=== PATIENT | female | born 1970 | race Caucasian/White ===

== ENCOUNTER 2021-09-10 15:00 | Emergency (ER) | payer BC, SELFPAY ==
[2021-09-10] VITALS (7 sets, daily range): BP systolic 137–186; BP diastolic 73–94; PULSE 82–89; RESP 19–20; TEMP 36.6–36.8; O2SAT 96–99; BMI 34.2
--- NOTE | ~2021-09-10 | CT_ITS ---
EXAMINATION: CT HEAD WITHOUT CONTRAST CLINICAL INFORMATION: Hypertension, headache COMPARISON: MR brain 01/07/2017, CT head 01/07/2017 TECHNIQUE: Contiguous axial imaging was performed from the skull base to vertex without intravenous administration of contrast. Additional 2-D coronal and sagittal reformatted images are generated on the CT workstation and uploaded to PACS. This CT examination was performed using dose optimization techniques as appropriate, variously including the following: *Automated exposure control *Adjustment of mA and/or kV according to patient size (this includes techniques or standardized protocols for targeted exams where dose is matched to indication/reason for exam; i.e. extremities or head) *Use of iterative reconstruction technique DLP: 629 mGy-cm FINDINGS: There is no intracranial hemorrhage, hematoma, or extra-axial fluid collection. The ventricles are normal in size. There is no hydrocephalus, edema, or mass effect. The hernandez-white matter differentiation appears well preserved . There is no visible acute territorial infarct or mass lesion. The calvarium appears intact. There is no pneumocephalus or orbital emphysema. The visualized sinuses and middle ears and mastoid air cells show no significant mucosal thickening. There are no air-fluid levels. CT/CT head/brain wo con IMPRESSION: No acute intracranial abnormality.
[2021-09-10] MEDS: Labetalol HCL 100 MG TABLET PO (15:16)
--- NOTE | 2021-09-10 15:20 | ECG_ITS ---
Test Reason : HEADACHE Blood Pressure : / mmHG Vent. Rate : 086 BPM Atrial Rate : 086 BPM P-R Int : 174 ms QRS Dur : 086 ms QT Int : 386 ms P-R-T Axes : 049 000 002 degrees QTc Int : 461 ms Normal sinus rhythm Septal infarct , age undetermined Abnormal ECG When compared to the previous EKG of No significant changes seen Referred By: Leticia Khan Electronically Signed By:Liam Umaña
--- NOTE | 2021-09-10 15:22 | ED.HA ---
HPI - Headache General Chief Complaint: Headache Stated Complaint: PIZARRO/DIZZY X'S HALF HOUR,+STROKE SCALE PER EMS Time Seen by Provider: 09/10/21 15:04 Source: patient and EMS Mode of arrival: EMS Limitations: no limitations History of Present Illness HPI Narrative: Patient comes emergency room complaining of a headache. Patient states that approximately 1-1/2 hours ago patient was watching TV, started noticing bright rainbow like smearing colors in her vision on the left eye, patient had no pain, no headache. Shortly after, patient started complaining of a headache in the posterior aspect of her head. Patient states that she called the ambulance due to her family's insistence. Patient was able to walk, open the door for EMS and get on the stretcher. Patient states that now she has the headaches it is 6/10, no visual changes, nausea vomiting. It was noted that patient's blood pressure is elevated, patient states she forgot to take her blood pressure medications this morning. Related Data Allergies Allergy/AdvReac Type Severity Reaction Status Date / Time No Known Allergies Allergy Unverified 06/01/20 17:46 [No Known Allergies*] Review of Systems Review of Systems: Constitutional : No Weight loss, No Fever, No Chills, No Night Sweats, No Fatigue, No Malaise ENT/Mouth : No Hearing loss, No Ear Pain, No Nasal Congestion, No Sinus Pain, No Hoarseness, No sore throat, No Rhinorrhea, No Swallowing Difficulty Eyes: No Eye Pain, No Swelling, No Redness, No Foreign Body, No Discharge, No Vision Changes Cardiovascular : No Chest Pain, No SOB, No Dyspnea on Exertion, No Orthopnea, No Edema, No Palpitations Respiratory : No Cough, No Sputum, No Wheezing, No Smoke Exposure, No Dyspnea Gastrointestinal : No Nausea, No Vomiting, No Diarrhea, No Constipation, No abdominal Pain, No Hematochezia, No Melena Genitourinary : no irregular bleeding, No Dysuria, No Urinary Frequency, No Hematuria, No Urinary Incontinence, No Urgency, No Flank Pain, No Urinary Flow Changes, No Hesitancy Musculoskeletal : No joint pain, No Myalgias, No Joint Swelling Skin : No Skin Lesions, No rash Neuro : No Weakness, No Numbness, No Paresthesias, No Loss of Consciousness, complaining of being removal like collar on the left side of her eye, feeling a bit dizzy but improving, complaining of headache Psych : No Anxiety/Panic, No Depression, No SI/HI/AH/VH, No Social Issues, Heme/Lymph: No Bruising, No Bleeding,No Lymphadenopathy Endocrine : No Polyuria, No Polydipsia, No Temperature Intolerance REPLACED BY [facility] Past Medical History Medical History Diabetes High cholesterol HTN (hypertension) Social History Social History Advance Directives: No Advance Directives Information Provided: Yes Patient : No Physical Exam Vital Signs: Vital Signs: Last Vital Signs Temp 98.3 F 09/10/21 16:24 Pulse 82 09/10/21 17:50 Resp 20 09/10/21 16:24 BP 137/73 09/10/21 17:50 Pulse Ox 98 09/10/21 17:50 BMI result Body Mass Index 34.2 Const: Other: Appearance: Alert. Oriented X3. No acute distress. Eyes: Pupils equal, round and reactive to light. ENT: Pharynx normal. Neck: Normal inspection. Neck supple. No lymph nodes noted. No crepitus CVS: Normal heart rate and rhythm. Pulses normal. Normal S1 and S2 Respiratory: No respiratory distress. Breath sounds normal. No Wheezing. No rales Abdomen: Soft and nontender. No rigidity. No distention. good BS x4 Skin: Skin warm and dry. Normal skin color. Normal skin turgor. Extremities: No lower extremity edema. No Lacerations. No Rash Neuro: Oriented X 3. No motor deficit. No sensory deficit. Moving all extermities. No slurred speech. Steady gait, ambulating normally without assistance, good truncal stability Course Course Course Narrative: I discussed the labs and CT scan with the patient, no acute findings. Patient received p.o. dose of meclizine, IV fluids, Zofran, Reglan and 1 dose of IV Toradol. Patient states that her headache completely resolved, no longer dizzy. Due to patient's high blood pressure she received 1 dose of p.o. labetalol, currently 132 systolic. As mentioned above, patient states she feels very well, asymptomatic, ready for discharge MDM - Headache Lab Data Result diagrams: 09/10/21 16:20 09/10/21 16:20 Labs: Lab Results 09/10/21 09/10/21 Range/Units 16:20 16:20 WBC 5.6 (4.8-10.8) X10*3/uL RBC 4.23 (4.20-5.50) X10*6/uL Hgb 12.0 (12.0-16.0) g/dl Hct 36.1 L (37.0-47.0) % MCV 85.3 (80.0-98.0) fL MCH 28.4 (27.0-33.0) pg MCHC 33.2 (31.0-35.0) g/dl RDW 12.7 (11.0-16.0) % Plt Count 259 (160-400) X10*3/uL MPV 8.7 L (9.4-12.3) fL Immature Gran % (Auto) 0.2 (0.0-0.4) % Neut % (Auto) 40.6 L (45-73) % Lymph % (Auto) 47.9 H (20-40) % [place] % (Auto) 8.4 (2-11) % Eos % (Auto) 2.5 (0-4) % Baso % (Auto) 0.4 (0-2) % Lymph # (Auto) 2.7 (1.2-4.9) X10*3/uL [place] # (Auto) 0.5 (0.1-1.2) X10*3/uL Eos # (Auto) 0.1 (0.0-0.4) X10*3/uL Baso # (Auto) 0.0 (0.0-0.2) X10*3/uL Abs Immat Gran (auto) 0.01 (0.00-0.03) X10*3/uL Absolute Neuts (auto) 2.3 (2.0-8.3) x10*3/uL Absolute Nucleated RBC 0.000 (0.0-0.012) X10*3/uL Nucleated RBC % (auto) 0.0 (0.0-0.2) /100WBC Sodium 140 (135-145) mmol/L Potassium 4.1 (3.3-5.1) mmol/L Chloride 108 (96-108) mmol/L Carbon Dioxide 26 (22-29) mmol/L Anion Gap 10 L (12-20) BUN 9 (9-16) mg/dL Creatinine 0.71 (0.5-1.4) mg/dL Estim Creat Clear Calc 85.3 Estimated GFR > 60 Random Glucose 267 H (60-115) mg/dL Calcium 9.1 (8.4-10.2) mg/dL Total Bilirubin 0.2 (0.0-1.0) mg/dL Direct Bilirubin < 0.2 (0.0-0.5) mg/dL AST 17 (5-31) U/L ALT 23 (0-31) U/L Alkaline Phosphatase 55 (39-117) U/L Total Protein 5.7 L (6.5-8.0) g/dL Albumin 3.6 (3.5-5.0) g/dL Imaging Data CT scan - head: Radiologist's impression: FINDINGS: There is no intracranial hemorrhage, hematoma, or extra-axial fluid collection.? The ventricles are normal in size. There is no hydrocephalus, edema, or mass effect.? The hernandez-white matter differentiation appears well preserved . There is no visible acute territorial infarct or mass lesion. The calvarium appears intact. There is no pneumocephalus or orbital emphysema.? The visualized sinuses and middle ears and mastoid air cells show no significant mucosal thickening. There are no air-fluid levels. CT/CT head/brain wo con IMPRESSION: No acute intracranial abnormality. Discharge Plan Discharge Clinical Impression: Migraine, Hypertension Patient Disposition: Home, Self-Care Instructions: Migraine Headache (ED) Additional Instructions: Please follow-up with your primary care physician tomorrow. If you have any worsening or new symptoms, please return to the emergency room or call 911
[2021-09-10] MEDS: Meclizine HCl 25 MG TABLET 50 MG PO (15:50)
[2021-09-10 16:35] LABS: MANUAL DIFF FLAG NO
[2021-09-10 16:36] LABS: Basophils Percent Auto 0.4 % (0-2); Eosinophils Absolute Auto 0.1 X10*3/uL (0.0-0.4); Eosinophils Percent Auto 2.5 % (0-4); Hematocrit 36.1 % (37.0-47.0); Imm Gran Abs Auto 0.01 X10*3/uL (0.00-0.03); Imm Gran Pct Auto 0.2 % (0.0-0.4); Lymphocytes Absolute Auto 2.7 X10*3/uL (1.2-4.9); Lymphocytes Percent Auto 47.9 % (20-40); Mean Corpuscular HGB Conc 33.2 g/dl (31.0-35.0); Mean Corpuscular Hemoglobin 28.4 pg (27.0-33.0); Mean Corpuscular Volume 85.3 fL (80.0-98.0); Mean Platelet Volume 8.7 fL (9.4-12.3); Monocytes Absolute Auto 0.5 X10*3/uL (0.1-1.2); Monocytes Percent Auto 8.4 % (2-11); Neutrophils Absolute Auto 2.3 x10*3/uL (2.0-8.3); Neutrophils Percent Auto 40.6 % (45-73); Platelet Count 259 X10*3/uL (160-400); Red Blood Count 4.23 X10*6/uL (4.20-5.50); Red Cell Distribution Width 12.7 % (11.0-16.0); White Blood Count 5.6 X10*3/uL (4.8-10.8)
[2021-09-10 16:56] LABS: Alanine Aminotransferase 23 U/L (0-31); Albumin Level 3.6 g/dL (3.5-5.0); Alkaline Phosphatase 55 U/L (39-117); Anion Gap 10 (12-20); Aspartate Amino Transferase 17 U/L (5-31); Bilirubin Direct < 0.2 mg/dL (0.0-0.5); Bilirubin Total 0.2 mg/dL (0.0-1.0); Blood Urea Nitrogen 9 mg/dL (9-16); Calcium 9.1 mg/dL (8.4-10.2); Carbon Dioxide 26 mmol/L (22-29); Chloride 108 mmol/L (96-108); Creatinine Clr Calc Pharmacy 85.3; Estimated Glomerular Filt Rate > 60; Glucose Random 267 mg/dL (60-115); Potassium 4.1 mmol/L (3.3-5.1); Sodium 140 mmol/L (135-145); Total Protein 5.7 g/dL (6.5-8.0)
[2021-09-10] MEDS: Ketorolac Tromethamine 30 MG/ML VIAL IVPUSH (17:45)
[2021-09-10] MEDS: diphenhydrAMINE HCL 50 MG/ML VIAL 25 MG IVPUSH (17:46)
[2021-09-10] MEDS: Metoclopramide HCl 10 MG/2 ML VIAL IVPUSH (17:46)
[2021-09-10] MEDS: 0.9 % Sodium Chloride 1,000 ML 999 ML IVCONT (17:48)
== END 2021-09-10 19:38 | disposition home or self-care (01) ==
PROVIDERS: Emergency Provider Emergency Medicine; PCP Pediatrics
DX: G43.009 Migraine without aura, not intractable, without status migrainosus (principal); I10 Essential (primary) hypertension; E11.9 Type 2 diabetes mellitus without complications
CPT/HCPCS: 36415; 70450; 80048; 80076; 85025; 93005; 96361; 96374; 96375; 99284; J1200; J1885; J2765

== ENCOUNTER 2022-04-19 09:04 | Emergency (ER) | payer OTHER, SELFPAY ==
--- NOTE | ~2022-04-19 | CT_ITS ---
EXAMINATION: CT ABDOMEN AND PELVIS WITHOUT CONTRAST CLINICAL INFORMATION: Left lower quadrant pain COMPARISON: None TECHNIQUE: Multidetector volumetric imaging was performed from the superior aspect of the liver through the pubic symphysis. Sagittal and coronal reformatted images were obtained on the technologist's workstation. This CT examination was performed using dose optimization techniques as appropriate, variously including the following: *Automated exposure control *Adjustment of mA and/or kV according to patient size (this includes techniques or standardized protocols for targeted exams where dose is matched to indication/reason for exam; i.e. extremities or head) *Use of iterative reconstruction technique DLP: 619 mGy-cm FINDINGS: LUNG BASES: The visualized lung bases are unremarkable. LIVER, GALLBLADDER, AND BILIARY TREE: The liver is prominent and demonstrates moderate steatosis. There is a large cyst related to the subhepatic space at 47 mm. Gallbladder is absent. PANCREAS: Unremarkable. SPLEEN: Unremarkable. ADRENAL GLANDS: Unremarkable. KIDNEYS AND URETERS: The kidneys are normal in size, shape, and attenuation. No hydronephrosis, hydroureter, or calculi seen. No perinephric stranding. BLADDER: Unremarkable. GASTROINTESTINAL TRACT: There is a definite inflammatory process surrounding the descending colon with mural thickening and diverticular disease noted. Findings are most likely consistent with acute diverticulitis. Drainable collections are not seen. ABDOMINAL WALL: There is induration in the anterior abdominal wall with some pockets air over the left lower abdomen possibly from prior injections. LYMPH NODES: Normal. VASCULAR: Aorta atherosclerotic but nonaneurysmal. PELVIC VISCERA: Prominent uterus. There is trace ascites in the left adnexa. OSSEOUS STRUCTURES: Unremarkable. CT/CT abdomen pelvis wo con IMPRESSION: Acute inflammatory process involving the descending colon. This is most likely diverticulitis Fleischner guidelines were followed.
[2022-04-19 09:12] VITALS: BP 120/70; PULSE 110; RESP 18; TEMP 36.8; O2SAT 96; BMI 34.2
[2022-04-19 09:15] VITALS: BP 126/70; PULSE 110; TEMP 36.8; O2SAT 96; BMI 34.2
[2022-04-19 10:13] LABS: MANUAL DIFF FLAG NO
[2022-04-19 10:15] LABS: Basophils Absolute Auto 0.1 X10*3/uL (0.0-0.2); Basophils Percent Auto 0.4 % (0-2); Eosinophils Absolute Auto 0.1 X10*3/uL (0.0-0.4); Eosinophils Percent Auto 0.3 % (0-4); Hematocrit 41.4 % (37.0-47.0); Hemoglobin 13.9 g/dl (12.0-16.0); Imm Gran Abs Auto 0.07 X10*3/uL (0.00-0.03); Imm Gran Pct Auto 0.5 % (0.0-0.4); Lymphocytes Absolute Auto 2.8 X10*3/uL (1.2-4.9); Lymphocytes Percent Auto 18.4 % (20-40); Mean Corpuscular HGB Conc 33.6 g/dl (31.0-35.0); Mean Corpuscular Hemoglobin 28.4 pg (27.0-33.0); Mean Corpuscular Volume 84.5 fL (80.0-98.0); Mean Platelet Volume 8.5 fL (9.4-12.3); Monocytes Absolute Auto 0.9 X10*3/uL (0.1-1.2); Monocytes Percent Auto 5.6 % (2-11); Neutrophils Absolute Auto 11.5 x10*3/uL (2.0-8.3); Neutrophils Percent Auto 74.8 % (45-73); Platelet Count 278 X10*3/uL (160-400); Red Cell Distribution Width 12.9 % (11.0-16.0); White Blood Count 15.4 X10*3/uL (4.8-10.8)
[2022-04-19 10:34] LABS: Alanine Aminotransferase 18 U/L (0-31); Albumin Level 4.5 g/dL (3.5-5.0); Alkaline Phosphatase 64 U/L (39-117); Anion Gap 16 (12-20); Aspartate Amino Transferase 12 U/L (5-31); Bilirubin Direct 0.3 mg/dL (0.0-0.5); Bilirubin Total 0.8 mg/dL (0.0-1.0); Blood Urea Nitrogen 10 mg/dL (9-16); C Reactive Protein 12.11 mg/dL (< or = 0.50); Calcium 9.7 mg/dL (8.4-10.2); Carbon Dioxide 26 mmol/L (22-29); Chloride 103 mmol/L (96-108); Creatinine Clr Calc Pharmacy 72.2; Estimated Glomerular Filt Rate > 60; Glucose Random 207 mg/dL (60-115); Lipase 43 U/L (8-78); Potassium 4.6 mmol/L (3.3-5.1); Sodium 140 mmol/L (135-145); Total Protein 7.1 g/dL (6.5-8.0)
[2022-04-19] MEDS: Lactated Ringers 1,000 ML 999 ML IV ×2 (10:56→12:28)
[2022-04-19] MEDS: Piperacillin Sodium/Tazobactam 3.375 GM in 0.9 % Sodium Chloride 50 ML IV (10:56)
[2022-04-19] MEDS: Morphine Sulfate 4 MG/ML CARTRIDGE IVPUSH (10:57)
[2022-04-19] MEDS: ondansetron HCL 4 MG/2 ML VIAL IVPUSH (10:57)
--- NOTE | 2022-04-19 11:07 | ED.ABDPAIN ---
HPI - Abdominal Pain General Chief Complaint: Abdominal Pain Stated Complaint: sharp pain on L side Time Seen by Provider: 04/19/22 09:47 Source: patient Mode of arrival: ambulatory Limitations: no limitations History of Present Illness MD elicited complaint: abdominal pain Pertinent past history: diverticulitis Onset (ago): day(s) (3 days ago) Pain Consistency: constant Location: LLQ Severity: moderate Quality: aching Radiation: none Migration to: no migration Exacerbating factors: movement Relieving factors: nothing Context: history of similar episodes Associated symptoms: nausea and chills Related Data Previous Rx's Medication Instructions Recorded levofloxacin 750 mg tablet 750 mg PO DAILY 7 days #7 tabs 04/19/22 metronidazole 500 mg tablet 500 mg PO BID 7 days #14 tabs 04/19/22 morphine 15 mg immediate release 15 mg PO TID PRN pain #12 tabs 04/19/22 tablet ondansetron 4 mg disintegrating 4 mg PO Q8H PRN nausea and 04/19/22 tablet vomiting #20 tabs Allergies Allergy/AdvReac Type Severity Reaction Status Date / Time No Known Allergies Allergy Unverified 06/01/20 17:46 [No Known Allergies*] Review of Systems Review of Systems Constitutional : No Weight loss, No Fever, No Chills ENT/Mouth : No sore throat, No Rhinorrhea Eyes: No Swelling, No Redness Cardiovascular : No Chest Pain, No SOB, NoEdema Respiratory : No Cough, No Sputum, No Wheezing Gastrointestinal : Positive Nausea, no Vomiting, no Diarrhea, positive abdominal Pain, No Hematochezia, No Melena Genitourinary : No Dysuria, No Urinary Frequency, No Hematuria, No Urgency Musculoskeletal : No joint pain, No Myalgias, No Joint Swelling Skin : No Skin Lesions, No rash Neuro : No Weakness, No Numbness, No Dizziness, No Headache Psych : No Anxiety/Panic, No Depression Heme/Lymph: No Bruising, No Lymphadenopathy Endocrine : No Polyuria, No Polydipsia All other systems reviewed and are negative. [facility] Past Medical History Attestation statement: The following information was validated with the patient. Medical History Diabetes High cholesterol HTN (hypertension) Surgical History S/P cholecystectomy Social History Social History (Updated 04/19/22 @ 11:08 by Carol Mckeon DO) Alcohol intake: current Alcohol intake frequency: 3 or more drinks per day Patient Tobacco Use Status: Current everyday Tobacco user Use of substances other than those prescribed or required for medical reasons: No Advance Directives: No Advance Directives Information Provided: Yes Physical Exam ED Vital Signs: Vital Signs - 24 hr 04/19/22 09:12 04/19/22 09:15 04/19/22 11:22 Temperature 98.3 F 98.3 F Pulse Rate 110 H 110 H 99 Respiratory Rate 18 18 Blood Pressure 120/70 126/70 126/71 Pulse Oximetry 96 96 97 Oxygen Delivery Method Room Air Room Air Room Air 04/19/22 11:23 04/19/22 13:04 Temperature Pulse Rate 100 103 H Respiratory Rate 18 18 Blood Pressure 130/75 135/69 Pulse Oximetry 97 97 Oxygen Delivery Method Room Air Room Air BMI result Body Mass Index 34.2 Appearance: Alert. Oriented X3. No acute distress. Eyes: Pupils equal, round and reactive to light. ENT: Pharynx normal. Neck: Normal inspection. Neck supple. CVS: tachycardic heart rate and rhythm. Pulses normal. Respiratory: No respiratory distress. Breath sounds normal. Abdomen: Soft and moderate LLQ pain with guarding and some mild rebound Skin: Skin warm and dry. Normal skin color. Normal skin turgor. Extremities: No lower extremity edema. No calf ttp Neuro: Oriented X 3. No motor deficit. No sensory deficit. Course Course Course Narrative: tolerating PO, WBC count afebrile, lactic acid negative. no abscess or perforation - patient wants to try treatment at home MDM - Abdominal Pain MDM Narrative Medical decision making narrative: 52 yo female with hx of HTN, DM, MS, diverticulitis here with c/o LLQ pain concerning for diverticulitis at this time will need labs, cultures, lactic acid, IVF x 2L, CT scan. IV morphine for pain. Possible peforation given exam. Patient told to be NPO. Dispo per results and findings. Lab Data Result diagrams: 04/19/22 10:09 04/19/22 10:09 Labs: Lab Results 04/19/22 04/19/22 04/19/22 Range/Units 10:09 10:09 10:51 WBC 15.4 H (4.8-10.8) X10*3/uL RBC 4.90 (4.20-5.50) X10*6/uL Hgb 13.9 (12.0-16.0) g/dl Hct 41.4 (37.0-47.0) % MCV 84.5 (80.0-98.0) fL MCH 28.4 (27.0-33.0) pg MCHC 33.6 (31.0-35.0) g/dl RDW 12.9 (11.0-16.0) % Plt Count 278 (160-400) X10*3/uL MPV 8.5 L (9.4-12.3) fL Immature Gran % (Auto) 0.5 H (0.0-0.4) % Neut % (Auto) 74.8 H (45-73) % Lymph % (Auto) 18.4 L (20-40) % [place] % (Auto) 5.6 (2-11) % Eos % (Auto) 0.3 (0-4) % Baso % (Auto) 0.4 (0-2) % Lymph # (Auto) 2.8 (1.2-4.9) X10*3/uL [place] # (Auto) 0.9 (0.1-1.2) X10*3/uL Eos # (Auto) 0.1 (0.0-0.4) X10*3/uL Baso # (Auto) 0.1 (0.0-0.2) X10*3/uL Abs Immat Gran (auto) 0.07 H (0.00-0.03) X10*3/uL Absolute Neuts (auto) 11.5 H (2.0-8.3) x10*3/uL Absolute Nucleated RBC 0.000 (0.0-0.012) X10*3/uL Nucleated RBC % (auto) 0.0 (0.0-0.2) /100WBC Sodium 140 (135-145) mmol/L Potassium 4.6 (3.3-5.1) mmol/L Chloride 103 (96-108) mmol/L Carbon Dioxide 26 (22-29) mmol/L Anion Gap 16 (12-20) BUN 10 (9-16) mg/dL Creatinine 0.83 (0.5-1.4) mg/dL Estim Creat Clear Calc 72.2 Estimated GFR > 60 Random Glucose 207 H (60-115) mg/dL Lactic Acid 1.8 (0.5-2.0) mmol/L Calcium 9.7 D (8.4-10.2) mg/dL Total Bilirubin 0.8 (0.0-1.0) mg/dL Direct Bilirubin 0.3 (0.0-0.5) mg/dL AST 12 (5-31) U/L ALT 18 (0-31) U/L Alkaline Phosphatase 64 (39-117) U/L C-Reactive Protein 12.11 H (< or = 0.50) mg/dL Total Protein 7.1 D (6.5-8.0) g/dL Albumin 4.5 D (3.5-5.0) g/dL Lipase 43 (8-78) U/L ECG Data Attestation: I personally reviewed and interpreted this ECG as follows: ECG interpretation date: 04/19/22 ECG interpretation time: 11:34 Interpretation: Rate: 81 Rhythm: NSR [place]: normal , LVH Normal P waves. Normal DIANA. LBBB ST T wave : normal no PARKER unchanged from priors qTC: prolonged prior studies: no change from priors The study has been interpreted contemporaneously by me. Discharge Plan Discharge Clinical Impression: Diverticulitis Abdominal pain Qualifiers: Abdominal location: left lower quadrant Qualified Code(s): R10.32 - Left lower quadrant pain Leukocytosis Qualifiers: Leukocytosis type: unspecified Qualified Code(s): D72.829 - Elevated white blood cell count, unspecified Patient Disposition: Home, Self-Care Instructions: Diverticulitis (ED), Leukocytosis (ED), Abdominal Pain (ED) Additional Instructions: return to ED for any worsening symptoms or concerns if no improvement - fevers, worsening pain, vomiting come back to ED clear liquid diet for 24 hours Prescriptions: New morphine 15 mg tablet 15 mg PO TID PRN (Reason: pain) Qty: 12 0RF Rx Instructions: partial fill okay; Partial Fill upon patient request. ondansetron 4 mg tablet,disintegrating 4 mg PO Q8H PRN (Reason: nausea and vomiting) Qty: 20 0RF metronidazole 500 mg tablet 500 mg PO BID 7 Days Qty: 14 0RF levofloxacin 750 mg tablet 750 mg PO DAILY 7 Days Qty: 7 0RF Stand Alone Forms: Work/School Release
[2022-04-19 11:10] LABS: Lactic Acid 1.8 mmol/L (0.5-2.0)
[2022-04-19 11:22] VITALS: BP 126/71; PULSE 99; RESP 18; O2SAT 97
[2022-04-19 11:23] VITALS: BP 130/75; PULSE 100; RESP 18; O2SAT 97
--- NOTE | 2022-04-19 12:29 | PC.NURSE ---
pt is currently sleeping, when woken up pt states no pain when resting but when starts to move around pain starts and pain is at 8/10
[2022-04-19 13:04] VITALS: BP 135/69; PULSE 103; RESP 18; O2SAT 97
[2022-04-19 13:52] VITALS: BP 126/63; PULSE 99; RESP 18; O2SAT 98
[2022-04-19] MEDS: Ketorolac Tromethamine 30 MG/ML VIAL IVPUSH (13:53)
[2022-04-19] MEDS: Morphine Sulfate Immed Release 15 MG TABLET PO (13:53)
[2022-04-19 14:03] LABS: Appearance Urine HAZY; Color Urine YELLOW; Glucose Urine UA NEG (NEG); Leukocyte Esterase Urine NEG (NEG); Nitrite Urine NEG (NEG); PH 5.5 (5.0-8.0); Urine Blood NEG (NEG); Urine Ketones NEG (NEG); Urine Protein NEG (NEG-TRACE)
== END 2022-04-19 14:14 | disposition home or self-care (01) ==
PROVIDERS: Emergency Provider Emergency Medicine; PCP Internal Medicine
DX: K57.32 Diverticulitis of large intestine without perforation or abscess without bleeding (principal); R10.32 Left lower quadrant pain; D72.829 Elevated white blood cell count, unspecified; Z79.899 Other long term (current) drug therapy; F17.200 Nicotine dependence, unspecified, uncomplicated; Z71.6 Tobacco abuse counseling
CPT/HCPCS: 36415; 74176; 80048; 80076; 81003; 83605; 83690; 85025; 86140; 87040; 96361; 96365; 96375; 99284; 99285; J1885; J2270; J2405; J2543

== ENCOUNTER 2022-04-25 15:46 | Emergency (ER) | payer OTHER, SELFPAY ==
[2022-04-25 16:14] VITALS: BP 172/79; PULSE 90; RESP 18; TEMP 37.1; O2SAT 97; BMI 33.2
[2022-04-25 17:14] LABS: Appearance Urine CLEAR; Color Urine YELLOW; Glucose Urine UA NEG (NEG); Leukocyte Esterase Urine NEG (NEG); Nitrite Urine NEG (NEG); PH 5.5 (5.0-8.0); Urine Blood NEG (NEG); Urine Ketones NEG (NEG); Urine Protein NEG (NEG-TRACE)
[2022-04-25 17:15] LABS: Hematocrit 38.7 % (37.0-47.0); Hemoglobin 13.2 g/dl (12.0-16.0); Mean Corpuscular HGB Conc 34.1 g/dl (31.0-35.0); Mean Corpuscular Hemoglobin 28.5 pg (27.0-33.0); Mean Corpuscular Volume 83.6 fL (80.0-98.0); Mean Platelet Volume 8.4 fL (9.4-12.3); Platelet Count 355 X10*3/uL (160-400); Red Blood Count 4.63 X10*6/uL (4.20-5.50); Red Cell Distribution Width 12.6 % (11.0-16.0); White Blood Count 8.2 X10*3/uL (4.8-10.8)
[2022-04-25 17:42] LABS: Anion Gap 17 (12-20); Blood Urea Nitrogen 6 mg/dL (9-16); Calcium 9.2 mg/dL (8.4-10.2); Carbon Dioxide 26 mmol/L (22-29); Chloride 98 mmol/L (96-108); Creatinine Clr Calc Pharmacy 72.8; Estimated Glomerular Filt Rate > 60; Glucose Random 167 mg/dL (60-115); Potassium 3.7 mmol/L (3.3-5.1); Sodium 137 mmol/L (135-145)
== END 2022-04-26 02:19 | disposition left against medical advice (07) ==
PROVIDERS: Emergency Provider Emergency Medicine; PCP Internal Medicine
DX: F41.9 Anxiety disorder, unspecified (principal)
CPT/HCPCS: 36415; 80048; 81003; 85027; 99282; 99283